=== PATIENT | female | born 1975 ===

== ENCOUNTER → 2020-06-23 | Outpatient (CLI) | payer BC | END | disposition home or self-care (01) | LOC: LABWHC1 16:02 | PROVIDERS: ATTEND Emergency Medicine | DX: Z20.822 Contact with and (suspected) exposure to COVID-19 (principal) | CPT/HCPCS: U0003; C9803 ==

== ENCOUNTER → 2024-04-30 | Day surgery (SDC) | payer BC ==
--- NOTE | 2024-05-12 10:10 | MM ---
Reason for Exam: Post Procedure Mammogram. Last screening mammogram was performed less than 1 month ago. Patient History: Menarche at age 10. First Full-Term at age 17. Patient has history of breast feeding. Risk Values: Rufina 5 year model risk: 0.7%. NCI Lifetime model risk: 6.5%. Prior Study Comparison: 04/17/2024 Bilateral MG 3D diag mammo w/cad [facility], [facility]. 04/17/2024 Bilateral US breast [facility], [facility]. Tissue Density: Right: The breasts are heterogeneously dense, which may obscure small masses. Pathology Description: Location: 3 o'clock. Marker Left Behind. Cores: 3 Skin Nicks: 1 Gauge: 14 The procedure of ultrasound guided core biopsy was explained to the patient. Benefits, alternatives, and risks were discussed. An informed consent was then obtained. The patient was placed in supine positioning for imaging and for the procedure. The overlying skin was prepped and draped in usual sterile fashion. Lidocaine buffered with bicarbonate was used as anesthetic into the skin and subcutaneous tissue up to area of concern in the right breast. A elisa was made with surgical scalpel. Under ultrasound guidance, a 14-gauge assisted biopsy gun device was used to obtain 3 core samples. Following this, a biopsy clip was left in lesion. The patient tolerated the procedure well without any immediate complication. The patient was kept in the radiology department for short stay after the procedure and then discharged home in stable condition. Postprocedure mammogram: The patient was transferred to mammography for physician ordered post procedure mammogram for clip placement verification. Post procedure mammogram demonstrates appropriate placement of clip. Impression: Successful , uncomplicated ultrasound guided core biopsy of Right breast 3:00 mass 8 cm from the nipple, full pathology results to follow. [facility], , 04/30/2024 1:49 PM. Pathology Results: Result: Malignant, Invasive ductal carcinoma. Pathology and radiology were reviewed. Findings are concordant. RIGHT BREAST, THREE O'CLOCK, ULTRASOUND GUIDED NEEDLE CORE BIOPSY: Invasive poorly differentiated ductal carcinoma (Grade 3) and focal high grade DCIS. See Surgical Pathology Cancer Case Summary. Overall Assessment: Malignant Assessment: MG diagnostic mammo RT wo CAD - Right: Known biopsy proven malignancy, BI-RAD 6. Management: Surgical Consultation of the right breast. Electronically signed and approved by: Jermaine Tang DO
== END ==
LOC: RADUSWWP 11:56
PROVIDERS: ATTEND Family Medicine
DX: C50.811 Malignant neoplasm of overlapping sites of right female breast (principal); Z17.0 Estrogen receptor positive status [ER+]
CPT/HCPCS: 88305; 88342; 88341; 77065; 19083; A4648

== ENCOUNTER → 2024-05-08 | Outpatient (CLI) | payer BC ==
[2024-05-08 13:53] VITALS: BP 155/90; PULSE 66; RESP 16; TEMP 97.9
--- NOTE | 2024-05-08 14:05 | P.GSCN ---
History of Present Illness Consult date: 05/08/24 Reason for Consult: Right breast invasive ductal carcinoma Requesting physician: Jose Mena History of present illness: Nasima is a 48-year-old female seen in consultation regarding a right breast biopsy-proven invasive ductal carcinoma. She underwent a bilateral screening mammogram on 04-17-2024. This revealed breast which were heterogeneously dense at the 3 o'clock position right breast there was a 2.3 cm lobulated focal asymmetry with associated heterogeneous calcifications. Lateral asymmetric density on the cc view did not persist on spot compression views. This was considered BI-RADS 0 and an ultrasound was performed. The ultrasound was performed on 04-17-2024 at the 8 o'clock position that revealed a benign oval 1.4 cm cyst at the 9 o'clock position revealed a 1.5 cm cyst at the 3 o'clock position in the left breast there was a 2 x 2 x 1.6 cm solid mass. In the left breast at the 4 o'clock position there was a cyst no other solid or cystic lesions of concern noted the impression was a lesion in the right breast 3:00 highly suggestive for malignancy biopsy recommended. Biopsy was performed on 04-30-2024 pathology results revealed an invasive ductal carcinoma grade 3 ER/[place] positive HER2 pending. She felt a lump in her right breast for many years and told a cyst. She moved to [facility] about 5 years ago and felt the lump had increased in size and sent for a mammogram. Dr. Mena is her primary care doctor. She does not have any nipple discharge or skin changes. She tolerated the biopsy without difficulty. Caffiene: occasional nicotine: stopped smoking 1 week ago, used to smoke 1/2 for 30 years chocolate: daily BCP: none hormones: estrogen cream in the past not for a long time Family History: patient only cancer Hormonal History: menarche: 10 , breast feed: yes, age at first : 17 peroids irregular over last three months Surgical History: Medical History: HTN depression Social History: nicotine: as above alcohol: none drugs: none Review of Systems - Constitutional Denies fever, Denies weight loss - EENT Eyes: denies blurred vision Ears: deny: decreased hearing, tinnitus Ears, nose, mouth and throat: Denies dysphagia - Breasts bilateral: as per HPI - Cardiovascular Denies chest pain, Denies shortness of breath - Respiratory Denies cough, Denies 7 - Gastrointestinal Reports as per HPI - Genitourinary Genitourinary: Denies dysuria, Denies hematuria Menstruation: Reports cycle variable - Musculoskeletal Reports as per HPI - Integumentary Denies rash, Denies unusual bruising - Neurological Denies headaches, Denies syncope - Psychiatric Reports as per HPI, Reports depression - Endocrine Reports as per HPI - Hematologic/Lymphatic Denies easy bleeding, Denies easy bruising - Allergic/Immunologic Reports as per HPI Past Medical History Past Medical History: Hypertension History of Any Multi-Drug Resistant Organisms: None Reported Past Surgical History: No Surgical Hx Reported Past Anesthesia/Blood Transfusion Reactions: No Reported Reaction Past Psychological History: Anxiety Smoking Status: Current every day smoker Past Alcohol Use History: None Reported Additional Past Alcohol Use History / Comment(s): 10-15 cigs daily Past Drug Use History: None Reported Medications and Allergies Home Medications Medication Instructions Recorded Confirmed Type FLUoxetine HCL [PROzac] 10 mg PO DAILY 04/23/24 05/08/24 History Metoprolol Tartrate [Lopressor] 25 mg PO DAILY 04/23/24 05/08/24 History Allergies Allergy/AdvReac Type Severity Reaction Status Date / Time No Known Allergies Allergy Verified 05/08/24 13:45 Surgical - Exam - General no distress - Eyes normal ocular movement - ENT no hearing loss - Neck trachea midline - Respiratory normal respiratory effort, clear to auscultation - Cardiovascular Rhythm: regular Heart Sounds: normal: S1, S2 - Abdomen Abdomen: soft, non tender, no guarding, no rigid, no rebound - Integumentary normal turgor - Neurologic no disoriented, no combative - Musculoskeletal normal gait, normal posture - Psychiatric oriented to time, oriented to person, oriented to place, speech is normal, memory intact Breast Exam: BRA: medium inspection: Bilateral grade 2 ptosis, ecchymosis breast and periareolar region near biopsy site Palpation: Right breast: Multi positional exam approximately 2 to 2-1/2 cm area of nodularity in the 3 o'clock position near the periareolar region otherwise no dominant masses or nodules of concern Right axilla: No adenopathy of concern Left breast: Multi positional exam no dominant masses or nodules of concern Left axilla: No adenopathy of concern Results Mammogram and ultrasound personally reviewed and discussed with Dr. Maciel Right breast 3 o'clock position approximately 2 x 2 cm lesion which is consistent with the biopsy-proven invasive ductal carcinoma Assessment and Plan Assessment: Pression: Right breast 3 o'clock position biopsy-proven invasive ductal carcinoma Fibrocystic breast changes Plan: Presentation of case at tumor board CC: Dr. Mena
== END ==
LOC: WWCWWP 13:32
PROVIDERS: ATTEND Surgery
DX: C50.811 Malignant neoplasm of overlapping sites of right female breast (principal); I10 Essential (primary) hypertension; N64.89 Other specified disorders of breast; N63.25 Unspecified lump in the left breast, overlapping quadrants; N60.02 Solitary cyst of left breast; N60.11 Diffuse cystic mastopathy of right breast